=== PATIENT | male | born 1990 | race Caucasian/White ===

== ENCOUNTER 2017-10-10 18:46 | Emergency (ER) | payer OTHER ==
[~2017-10-10] VITALS: Ht 180.3 cm; Wt 83.9 kg
[~2017-10-10 18:46] MED LIST: LEVEMIR 10100 UNITS/ SC; NOVOLOG100 U/ML SC; PERCOCET 325 MG1 TA2 PO
--- NOTE | 2017-10-10 20:33 | ED HAND/WRIST INJURY COMPLAINT ---
History of Present Illness General Chief Complaint: Laceration Procedure Stated Complaint: RIGHT INDEX FINGER LAC ON FINGER Source: patient Exam Limitations: no limitations Vital Signs & Intake/Output Vital Signs & Intake/Output Vital Signs Date Time Temp Pulse Resp B/P B/P Pulse O2 O2 Flow FiO2 Mean Ox Delivery Rate 10/103 97.7 81 17 127/65 99 Room Air 10/10 1912 96.8 93 18 144/83 96 Room Air ED Intake and Output 10/11 0000 10/10 1200 Intake Total Output Total Balance Patient 185 lb Weight Weight Reported by Patient Measurement Method Allergies Coded Allergies: NO KNOWN ALLERGIES (04/08/12) Reconcile Medications Insulin Aspart, Recombinant (Novolog) 100 U/ML KARTHIK 0 UNITS SC AD GLUCOSE CONTROL (Reported) BLOOD SUGAR # OF UNITS < 80 NONE 80-150 NONE 151-200 4 UNITS 201-250 6 UNITS 251-300 8 UNITS 301-350 10 UNITS 351-400 12 UNITS >400 14 UNITS and call MD CHANGED TO INSULIN DRIP Insulin Aspart, Recombinant (Novolog) 100 U/ML KARTHIK 0 UNITS SC TIDAC DIABETES 80-150 4 UNITS; 151-200 6 UNITS; 201-250 8 UNITS; 251-300 10 UNITS; 301-350 12 UNITS; 351-400 14 UNITS; >400 14 UNITS CALL MD BED TIME SCALE: 251-300 2 UNITS; 301-350 3 UNITS; 351-400 4 UNITS Insulin Detemir (Levemir) 100 UNIT/ML VIAL 8 UNITS SC BID diabetes Triage Note: PT CUT HIS RIGHT POINTER FINGER ON A MIRROR. PT UNSURE OF TETANUS STATUS. Triage Nurses Notes Reviewed? yes Occurred: this evening Duration: hour(s): Timing: single episode today Injury Environment: home Severity: moderate Pain/Injury Location: Right: 2nd finger. Context: laceration HPI: 27-year-old male presents emergency department complaining of laceration to right index finger sustained at home prior to arrival. Patient states he was moving a mirror when a piece of the mirror cut his right index finger. Patient applied pressure and presented here to the emergency department. He is unsure of when his last tetanus vaccine was. Patient states he irrigated the wound with sterile saline extensively prior to arrival. He denies numbness or tingling. (Raquel OWENS,Lor Caldera) Past History Travel History Traveled to [place] past 21 day No Medical History Any Pertinent Medical History? see below for history Endocrine: diabetes History of MRSA: No History of VRE: No History of CDIFF: No Surgical History Surgical History: non-contributory Psychosocial History Who do you live with Spouse What is your primary language Lebanese Tobacco Use: Current Not Daily Daily Tobacco Use Amount/Type: =< 4 Cigarettes daily ETOH Use: denies use Illicit Drug Use: denies illicit drug use Family History Family History, If Any: Grandfather ([place]). Cousin (Type 1 DM). Hx Contributory? No (Lor Hernandez) Review of Systems Review of Systems Constitutional: Reports: no symptoms. EENTM: Reports: no symptoms. Respiratory: Reports: no symptoms. Cardiovascular: Reports: no symptoms. GI: Reports: no symptoms. Genitourinary: Reports: no symptoms. Musculoskeletal: Reports: no symptoms. Skin: Reports: see HPI. Neurological/Psychological: Reports: no symptoms. Hematologic/Endocrine: Reports: no symptoms. Immunologic/Allergic: Reports: no symptoms. All Other Systems: Reviewed and Negative (Lor Hernandez) Physical Exam Physical Exam General Appearance: well developed/nourished, no apparent distress, alert, awake Head: atraumatic, normal appearance Eyes: Bilateral: normal appearance. Ears, Nose, Throat: hearing grossly normal Neck: normal inspection, supple, full range of motion Cardiovascular/Respiratory: no respiratory distress Back: normal inspection, normal range of motion Wrist Left: normal range of motion, normal inspection Wrist Right: normal range of motion, normal inspection Hand Left: normal inspection, normal range of motion Hand Right: 2.5cm flap laceration to dorsal index finger at level of PIP Neurologic/Tendon: normal sensation, normal motor functions, normal tendon functions Skin: normal color, warm/dry, laceration as mentioned above (Lor Hernandez) Progress Differential Diagnosis: fracture, sprain, laceration, contusion Plan of Care: Current Medications Sig/Hermila Start time Last Medication Dose Stop Time Status Admin Tetanus/Diphtheria 0.5 ML ONCE ONE 10/10 2114 UNVr Toxoids Adsorbed 10/11 2115 (Decavac) No difficulty with range of motion, no tendon visualized, low suspicion for acute tendon injury. Laceration closed using stitches. Patient tolerated procedure well. Tetanus vaccine administered. Patient placed in finger splint to prevent breaking stitches. He was educated on signs and symptoms of skin infection. He will return for suture removal. Patient agrees with the plan of care. (Raquel OWENS,Lor Caldera) Departure Departure Disposition: HOME OR SELF CARE Condition: Stable Clinical Impression Primary Impression: Laceration Referrals: Unknown (PCP/Family) Additional Instructions: Return in 7-10 days for removal of stitches. Follow-up with your primary care doctor. Wear finger splint to prevent breaking of stitches. Monitor for signs of skin infection including redness, swelling, increasing pain, warmth. Return sooner with any of these symptoms or other concerns. Please note that there might be incidental findings in your evaluation that are unrelated to the current emergency department visit. Please notify your primary care doctor about this emergency department visit in order to obtain and review all of the testing performed so that these incidental findings can be monitored as needed. If you had an x-ray performed, please understand that some fractures may not be seen on the initial set of x-rays. If your symptoms persist you might need a repeat set of x-rays to check for such a fracture. If you had a laceration evaluated, please understand that foreign bodies such as glass or wood may not be visible to the naked eye or on plain x-rays. If the wound becomes red, swollen, increasingly more painful or if there is any drainage from the wound, please have it reevaluated by a physician for the possibility of a retained foreign body. If you're unable to follow up as outlined in the discharge instructions please return to the emergency department. Thank you for choosing the [facility] Emergency Department for your care. It was a pleasure to serve you today. Departure Forms: Customer Survey General Discharge Information (oLr Hernandez) PA/TIMBER APPRAISER Co-Sign Statement Statement: ED Attending supervision documentation- [x] I have reviewed the ED Record and agree with the PA's/TIMBER APPRAISER's documentation. (Ryan MCDANIEL,Bryan Coburn) Procedures Laceration/Wound Repair Laceration/Wound Repair: Wound Location: right index finger Wound's Depth, Shape: flap Wound Length (cm): 2.5 Wound Explored: clean Irrigated w/ Saline (ccs): 100 Betadine Prep? Yes Anesthesia: 1% lidocaine Volume Anesthetic (ccs): 3 Wound Repaired With: sutures Suture Size/Type: 4:0, nylon Number of Sutures: 5 Layer Closure? No Sterile Dressing Applied: Yes Splint Applied? Yes By Who? by me Type of Splint Applied: finger Date of Last Tetanus: 10/10/17 Tetanus Status: up to date Progress: Patient tolerated the procedure well. (Raquel OWENS,Lor Caldera)
[2017-10-10 21:33] VITALS: BP 127/65
== END 2017-10-10 21:34 ==
LOC: ERH 18:46
DX: S61.210A Laceration without foreign body of right index finger without damage to nail, initial encounter (principal); W25.XXXA Contact with sharp glass, initial encounter; Y93.89 Activity, other specified; Y92.009 Unspecified place in unspecified non-institutional (private) residence as the place of occurrence of the external cause
CPT/HCPCS: 90471; J2001; J3101

== ENCOUNTER 2017-10-20 17:02 | Emergency (ER) | payer OTHER ==
[~2017-10-20] VITALS: Ht 180.3 cm; Wt 81.6 kg
[2017-10-20 17:24] VITALS: BP 135/81
[2017-10-20] MEDS ORDERED: KEFLEX500 M1 PO (17:29)
--- NOTE | 2017-10-20 17:30 | ED HAND/WRIST INJURY COMPLAINT ---
History of Present Illness General Chief Complaint: Suture Removal/Wound Recheck Stated Complaint: WOUND CHECK Source: patient Exam Limitations: no limitations Vital Signs & Intake/Output Vital Signs & Intake/Output Vital Signs Date Time Temp Pulse Resp B/P B/P Pulse O2 O2 Flow FiO2 Mean Ox Delivery Rate 10/20 1724 97.9 83 18 135/81 99 Room Air ED Intake and Output 10/21 0000 10/20 1200 Intake Total Output Total Balance Patient 180 lb Weight Weight Reported by Patient Measurement Method Allergies Coded Allergies: NO KNOWN ALLERGIES (04/08/12) Reconcile Medications Cephalexin (Keflex) 500 MG CAPSULE 1 CAP PO TID CELLULITIS Insulin Aspart, Recombinant (Novolog) 100 U/ML KARTHIK 0 UNITS SC AD GLUCOSE CONTROL (Reported) BLOOD SUGAR # OF UNITS < 80 NONE 80-150 NONE 151-200 4 UNITS 201-250 6 UNITS 251-300 8 UNITS 301-350 10 UNITS 351-400 12 UNITS >400 14 UNITS and call MD CHANGED TO INSULIN DRIP Insulin Aspart, Recombinant (Novolog) 100 U/ML KARTHIK 0 UNITS SC TIDAC DIABETES 80-150 4 UNITS; 151-200 6 UNITS; 201-250 8 UNITS; 251-300 10 UNITS; 301-350 12 UNITS; 351-400 14 UNITS; >400 14 UNITS CALL MD BED TIME SCALE: 251-300 2 UNITS; 301-350 3 UNITS; 351-400 4 UNITS Insulin Detemir (Levemir) 100 UNIT/ML VIAL 8 UNITS SC BID diabetes Triage Note: 27 Y/O MALE REQUESTING WOUND CHECK TO R INDEX FINGER. SITE APPEARS WELL HEALED WITH NO S/S INFECTION. EVAL'D BY GRACIELA CHARLES IN TRIAGE Triage Nurses Notes Reviewed? yes Occurred: last week Duration: week(s): (1), better Timing: single episode today Injury Environment: home Severity: mild, moderate Severity Numbers: 4 Pain/Injury Location: Right: 2nd finger. Context: laceration Method of Injury: laceration No Modifying Factors: none HPI: 27-year-old male with history of diabetes presents for a wound check. Patient was seen here a little over a week ago for a laceration to his right index finger. Sutures were placed. Patient states that he took the sutures out himself after 7 days. He reports there is a small area of redness around the laceration and he is concerned about infection. He also reports that the finger is still slightly swollen. There is been no discharge no fever the redness has not spread. He is a diabetic. No numbness or tingling. Past History Travel History Traveled to [place] past 21 day No Medical History Any Pertinent Medical History? see below for history Neurological: NONE EENT: NONE Cardiovascular: NONE Respiratory: NONE Gastrointestinal: NONE Hepatic: NONE Renal: NONE Musculoskeletal: NONE Psychiatric: NONE Endocrine: diabetes Blood Disorders: NONE Cancer(s): NONE SCIENTOLOGIST/Reproductive: NONE History of MRSA: No History of VRE: No History of CDIFF: No Tetanus Vaccine: 10/10/17 Surgical History Surgical History: non-contributory Psychosocial History Who do you live with Spouse What is your primary language Telugu Tobacco Use: Current Not Daily Family History Family History, If Any: Grandfather ([place]). Cousin (Type 1 DM). Hx Contributory? No Review of Systems Review of Systems Constitutional: Reports: no symptoms. EENTM: Reports: no symptoms. Respiratory: Reports: no symptoms. Cardiovascular: Reports: no symptoms. GI: Reports: no symptoms. Genitourinary: Reports: no symptoms. Musculoskeletal: Reports: no symptoms. Skin: Reports: see HPI (laceration ). Neurological/Psychological: Reports: no symptoms. Hematologic/Endocrine: Reports: no symptoms. Immunologic/Allergic: Reports: no symptoms. All Other Systems: Reviewed and Negative Physical Exam Physical Exam General Appearance: well developed/nourished, no apparent distress, alert, awake Head: atraumatic, normal appearance Eyes: Bilateral: normal appearance, EOMI. Ears, Nose, Throat: hearing grossly normal Neck: normal inspection, supple, full range of motion Cardiovascular/Respiratory: no respiratory distress Forearm Left: normal range of motion, normal inspection Forearm Right: normal range of motion, normal inspection Wrist Left: normal range of motion, normal inspection Wrist Right: normal range of motion, normal inspection Hand Left: normal inspection, normal range of motion Hand Right: normal range of motion, lacerations, swelling, 2nd finger, there is a 2cm cresent shaped well healed laceration to the distal segment anteriro rt 2nd digit. there is mild soft tissue swelling full rom intact. no discharge, cap refill less than 2 sec. there is a very small <0.5cm diameter area of erythema located at the lateral border of the wound. no focal fluctant areas. neurovascualr function intact Neurologic/Tendon: normal sensation, normal motor functions, normal tendon functions, responds to pain, no evidence tendon injury, no pulse deficit Skin: intact, normal color, warm/dry Progress Differential Diagnosis: abscess, cellulitis, contusion, fracture, septic arthritis, sprain, tenosynovitis Plan of Care: Patient is here for wound check of his right second digit laceration. He remove the sutures himself after 1 week. There appears well-healed there is some mild soft tissue swelling a very small area of erythema. Patient is concerned about infection because he is a diabetic. Advised patient to keep the area clean and dry ibuprofen and Tylenol as needed for pain. He was given a prescription for cephalexin to hold onto advised not to use it unless the swelling and erythema spread he has fever or purulent discharge. Advised to follow-up with his doctor in another few days for wound check. Discussed return precautions patient agrees the plan Departure Departure Disposition: HOME OR SELF CARE Condition: Stable Clinical Impression Primary Impression: Visit for wound check Referrals: Unknown Additional Instructions: Keep the area clean and dry. Wear splint for another week. Apply ice 15-20 minutes every few hours. Ibuprofen 800 mg every 8 hours with food as needed for pain. Monitor the area for signs of infection like spreading redness worsening swelling worsening pain fever. If these develop start antibiotics for the full course. Return to the emergency department with any concerns. Departure Forms: Customer Survey General Discharge Information Prescriptions: Current Visit Scripts Cephalexin (Keflex) 1 CAP PO TID #21 CAP
== END 2017-10-20 17:33 ==
LOC: ERH 17:02
DX: Z48.00 Encounter for change or removal of nonsurgical wound dressing (principal)